=== PATIENT | female | born 1985 | race American Indian/Alaskan Native ===

== ENCOUNTER 2020-05-03 12:41 | Emergency (ER) | payer SELFPAY ==
--- NOTE | 2020-05-03 12:44 | Emergency Department Report ---
Blank Doc - Documentation Documentation: 35-year-old female that presents with hearing voices . Stated has not been ta [facility] psych meds. Denies any SI/HI. This initial assessment/diagnostic orders/clinical plan/treatment(s) is/are subject to change based on patient's health status, clinical progression and re-assessment by fellow clinical providers in the ED. Further treatment and workup at subsequent clinical providers discretion. Patient/guardians urged not to elope from the ED as their condition may be serious if not clinically assessed and managed. Initial orders include: 1- Patient sent to MAIN ED for further evaluation and treatment 2- engine specialist was notified to have patient be brought back [facility]. 3- RN was notified to keep patient as close range and observation until room available
[2020-05-03 12:48] VITALS: BP 131/78
[2020-05-03 13:50] LABS: Hematocrit 26.2 % (30.3-42.9); Hemoglobin 7.9 gm/dl (10.1-14.3); Mean Corpuscular HGB Conc 30 % (30-34); Platelet Count 376 K/mm3 (140-440); Red Blood Count 4.89 M/mm3 (3.65-5.03)
--- NOTE | 2020-05-03 13:50 | Emergency Department Report ---
ED Psych HPI - General Chief Complaint: Psych Stated Complaint: MH Time Seen by Provider: 05/03/20 12:43 Source: patient Mode of arrival: Ambulatory - History of Present Illness Initial Comments: 35-year-old female, history of bipolar, schizophrenia, presents to ED requesting medication refill. Patient reports anxiety and states she is hearing voices, but states "it is just my voice." Denies any command auditory hallucinations. Patient states she has been out of her psych meds for approximately 1 year. She denies any SI or HI at this time. Patient states she took some of her roommate's Ativan, but it seemed to make her anxiety even worse. Complaint: other -: unknown Associated Psychiatric Symptoms: auditory hallucinations Quality: constant Improves With: medication Worsens With: none Context: not taking psychiatric Associated Symptoms: denies other symptoms Treatments Prior to Arrival: none - Related Data Allergies Allergy/AdvReac Type Severity Reaction Status Date / Time No Known Allergies Allergy Unverified 05/03/20 12:43 ED Review of Systems ROS: Stated complaint: MH Other details as noted in HPI Comment: All other systems reviewed and negative Psychiatric: anxiety, auditory hallucinations. denies: visual hallucinations, homicidal thoughts, suicidal thoughts ED Past Medical Hx - Past Medical History Hx Psychiatric Treatment: Yes (DEPRESSION BIPOLAR DEPRESSION) - Surgical History Past Surgical History?: No - Social History Smoking Status: Never Smoker Substance Use Type: None ED Physical Exam - General Limitations: No Limitations General appearance: alert, in no apparent distress - Head Head exam: Present: atraumatic, normocephalic - Eye Eye exam: Present: normal appearance, EOMI - ENT ENT exam: Present: mucous membranes moist - Neck Neck exam: Present: normal inspection - Respiratory Respiratory exam: Present: normal lung sounds bilaterally. Absent: respiratory distress - Cardiovascular Cardiovascular Exam: Present: regular rate, normal rhythm - GI/Abdominal GI/Abdominal exam: Absent: distended - Extremities Exam Extremities exam: Present: normal inspection - Neurological Exam Neurological exam: Present: alert, oriented X3 - Psychiatric Psychiatric exam: Present: normal affect, normal mood - Skin Skin exam: Present: warm, dry, intact, normal color ED Course Vital Signs 05/03/20 12:47 Temperature 98.5 F Pulse Rate 95 H Respiratory 18 Rate Blood Pressure 131/78 [Right] O2 Sat by Pulse 98 Oximetry ED Medical Decision Making - Lab Data Result diagrams: 05/03/20 13:17 05/03/20 13:17 - Medical Decision Making Patient seen and evaluated by mental health department secretary. She does not meet inpatient criteria at this time. Resources given. Outpatient follow-up advised, return precautions given. Outpatient resource information given as well. Critical care attestation.: If time is entered above; I have spent that time in minutes in the direct care of this critically ill patient, excluding procedure time. ED Disposition Clinical Impression: Anxiety, Bipolar disorder, Schizophrenia Disposition: - TO HOME OR SELFCARE Is pt being admited?: No Condition: Stable Instructions: Anxiety (ED) Referrals: [facility] [Outside] - 3-5 Days Time of Disposition: 15:02
[2020-05-03 13:51] LABS: Mean Corpuscular Volume 54 fl (79-97); Red Cell Distribution Width 20.6 % (13.2-15.2)
[2020-05-03 13:52] LABS: Blood Urea Nitrogen 9 mg/dL (7-17); Calcium 9.5 mg/dL (8.4-10.2); Hemolysis Index 1
[2020-05-03 13:57] LABS: BUN/Creatinine Ratio 13
[2020-05-03 14:26] LABS: Bilirubin,Urine NEG (Negative); Blood,Urine NEG (Negative); Color,Urine Yellow (Yellow); Mucus,Urine FEW /HPF; Protein,Urine <15 mg/dL mg/dL (Negative); RBC,Urine < 1.0 /HPF (0.0-6.0); Urobilinogen,Urine < 2.0 mg/dL (<2.0)
[2020-05-03 14:26] LABS: Basophils % (Manual) 0 % (0.0-1.8); Total Cells Counted 100
[2020-05-03 14:27] LABS: Anisocytosis 1+; Hypochromasia 3+
[2020-05-03 14:28] LABS: Platelet Estimate Consistent w Auto
[2020-05-03 14:29] LABS: Amphetamine Screen,Urine PRESUMPTIVE NEGATIVE; Benzodiazepines Screen,Urine PRESUMPTIVE NEGATIVE; Cannabinoid Screen,Urine PRESUMPTIVE NEGATIVE; Cocaine Screen,Urine PRESUMPTIVE NEGATIVE; Methadone Screen,Urine PRESUMPTIVE NEGATIVE; Opiate Screen,Urine PRESUMPTIVE NEGATIVE
== END 2020-05-03 15:20 | disposition home or self-care (01) ==
LOC: ED 12:41
DX: F25.0 Schizoaffective disorder, bipolar type (principal); F41.9 Anxiety disorder, unspecified
CPT/HCPCS: 36415; 80048; 80307; 80320; 81001; 84703; 85007; 85025; G0480